=== PATIENT | female | born 1955 | race Caucasian/White ===

== ENCOUNTER 2016-11-08 22:49 | Emergency (ER) | payer OTHER ==
[~2016-11-08] VITALS: Ht 167.6 cm; Wt 59.8 kg
[2016-11-09] MEDS ORDERED: ALBUTEROL SULFATE 2.5 MG/3 ML NPPB ONE
[2016-11-09 00:34] LABS: BLOOD UREA NITROGEN 8 mg/dL (7-18)
[2016-11-09 00:39] LABS: IS PT STATUS REG ER OR PRE ER? YES
[2016-11-09 01:04] VITALS: BP 113/79
[2016-11-09] MEDS ORDERED: HYDR12.58 PO (01:04)
== END 2016-11-09 01:21 | disposition home or self-care (01) ==
LOC: ED 23:59
DX: J44.1 Chronic obstructive pulmonary disease with (acute) exacerbation (principal); J44.9 Chronic obstructive pulmonary disease, unspecified
CPT/HCPCS: 36415; 71020; 80048; 82040; 84484; 85025; 93005; 94640; 99285; J7512; J7613